=== PATIENT | female | born 1935 | race Caucasian/White ===

== ENCOUNTER 2016-11-06 10:03 | Emergency (ER) | payer OTHER ==
[2016-11-06 10:15] VITALS: RESP 18
--- NOTE | 2016-11-06 10:30 | CPEKG ---
Heart Rate: 57 RR Interval: 1053 P-R Interval: 144 QRSD Interval: 82 QT Interval: 448 QTC Interval: 437 P Homer: 69 QRS Homer: 25 T Wave Homer: 52 EKG Severity - BORDERLINE ECG - EKG Impression: SINUS RHYTHM EKG Impression: PROBABLE LEFT ATRIAL ABNORMALITY Electronically Signed By: Yary Jiang 06-Nov-2016 17:11:48
--- NOTE | 2016-11-06 10:54 | EDPHY ---
H & P Stated Complaint: Had trouble finding words ~ 1 min on Saturday;no episodes since HPI/ROS: CHIEF COMPLAINT: Episode of word-finding difficulty, resolved HISTORY OF PRESENT ILLNESS: This patient is an 81 year old female arriving with her son complaining of an episode of difficulty speaking lasting about one minute on Saturday, three days ago. She is visiting from [place] (arrived one week ago), and was in [place] with family having a conversation about history and schools. She found suddenly she was unable to say words. Her son states she attempted to make sounds, but was unable to make any words or sentences for around one minute. She has never had a similar episode before. She has felt well since then, and has not had any difficulties since. She endorses nausea yesterday evening but attributes this to taking two aspirin before bed. She denies headache, vision problems, difficulty swallowing, numbness, weakness, loss of hearing, recent illness, cold , cough, chest pain, vomiting, dysuria, or urinary complaints. She takes daily aspirin due to a myocardial infarction 15 years ago. She had a stent placed at that time. She has not been aware of an irregular heartbeat and has no history of known arrhythmia. REVIEW OF SYSTEMS: A ten point review of systems was performed and is negative with the exception of the items mentioned in the HPI. - Personal History Current Tetanus Diphtheria and Acellular Pertussis (TDAP): No - Medical/Surgical History PMH: 1. Hypertension (Metoprolol) 2. Hypothyroid 3. Hyperlipidemia 4. Myocardial Infarction 15 years ago. Catheterization, stent placement 5. Hysterectomy 6. Appendectomy 7. Bowel obstruction, bowel adhesions x3 - Social History Smoking Status: Former smoker Additional Social History: Lives alone in [place], [place]. Here visiting her children. Nonsmoker, no alcohol use. Retired. Worked as a investment banker, branch banker. PCP Dr. Vance in [place]. - Physical Exam Exam: General Appearance: Alert. Vital signs reviewed. Blood pressure 168/96. Eyes: Pupils equal and round, no conjunctival injection, no discharge. Anicteric. ENT, Mouth: Mucous membranes are moist, no oropharyngeal erythema or edema. Hard of hearing on left. Neck: No carotid bruits. No lymphadenopathy, supple. Respiratory: Lungs are clear to auscultation; no wheezes, rales, or rhonchi. Cardiovascular: Regular rate and rhythm; no murmur, rub, or gallop. Gastrointestinal: Abdomen is soft and nontender, no masses or organomegaly, bowel sounds normal. Skin: Warm and dry, no rashes on exposed skin, normal color. Back: Nontender to palpation over the thoracolumbar spine. No CVAT. Extremities: No lower extremity edema, no calf tenderness or swelling. Neurological: Alert and oriented. Moving all four extremities easily and equally. Cranial nerves II through XII are examined and are intact (visual acuity not tested). Strength is 5 over 5 bilaterally with testing of all major motor groups. Sensation is intact to light touch over all 4 extremities. Deep tendon reflexes are 1+ in the biceps and knees bilaterally. Gait is normal. [id number] is performed accurately. Psychiatric: Normal affect. Constitutional: Initial Vital Signs Temperature (C) 37 C 11/06/16 10:05 Heart Rate 67 11/06/16 10:05 Respiratory Rate 18 11/06/16 10:05 Blood Pressure 168/96 H 11/06/16 10:05 O2 Sat (%) 93 11/06/16 10:05 O2 Delivery Mode Room Air Allergies/Adverse Reactions: No Known Allergies Allergy (Unverified 11/06/16 10:15) Home Medications: Medication Instructions Recorded B P Med 11/06/16 Cholesterol Med 11/06/16 Thyroid Med 11/06/16 Medical Decision Making ED Course/Re-evaluation: Plan for MRI to evaluate for TIA vs stroke vs other acute processes. Dysphasia lasting one minute three days ago. She is out of the window for TPA. Neurologic exam is normal today, no further episodes--TPA not indicated regardless of time of onset of symptoms. MRI of brain negative for CVA, other acute findings. EKG reviewed, no arrhythmia. CBC, chemistries, PT/PTT normal except for slight elevation in glucose. 12:16 Reassessed patient. Her blood pressure is elevated at 219/102, which she states is unusual for her. She has 3 month followups with primary care and her hypertension has been well controlled with Metoprolol. She is compliant with her medication. Lopressor 5 mg IV given. BP at discharge 148/92. Episode of speech loss sounds like TIA. No evidence of stroke on imaging. She is offered admission for complete TIA work-up but declines. She understands that she is at risk of stroke and accepts this risk. She understands the importance of controlling her blood pressure. She does not with further work- up or treatment (such as adding Plavix to her medications) at this time and would like to follow up with her PCP. She is returning home this week. Danger signs reviewed. Differential Diagnosis: I considered a ddx that includes but is not limited to CVA (hemorrhagic or ischemic), TIA, seizure, electrolyte abnormality, infection. - Data Points Laboratory Results: Laboratory Results 11/06/16 10:35 11/06/16 10:35 Medications Given: Discontinued Medications Metoprolol Tartrate (Lopressor Injection) 10 mg IVP EDNOW ONE Stop: 11/06/16 13:45 Last Admin: 11/06/16 13:57 Dose: 5 mg Departure - Departure Disposition: Home, Routine, Self-Care Clinical Impression: Word finding difficulty, Hypertension Condition: Good Instructions: Transient Ischemic Attack (ED), Hypertension (ED) Additional Instructions: Continue your prescribed medications. Continue the aspirin daily. Follow up with your physician at home as soon as you return. Let your doctor know about the word-finding difficulty that you had this weekend. Light you know that your blood pressures were high when you were evaluated in the emergency department. I recommend that you buy a home blood pressure cuff and check your blood pressures once daily. You should write down the pressures and take that information to your doctor next week. If you develop headache, confusion, change in vision, difficulty with speech, new numbness, new weakness, any new or concerning symptoms you should be re- evaluated immediately. I am giving you information about transient ischemic attack. I do not know whether this is what happened to you. Referrals: LARON COMER [Other] - As per Instructions Report Scribed for: Yary Jiagn Report Scribed by: Esha Gauthier Date of Report: 11/06/16 Time of Report: 14:43 Physician Review and Approval Statement: 11/06/16 10:54 Portions of this note were transcribed by the ophthalmic medical technician. I, Dr. Yary Jiang, personally performed the history, physical exam, and medical decision- making; and confirmed the accuracy of the information in the transcribed note.
[2016-11-06 11:29] LABS: % IMMATURE GRANULYOCYTES 0.4 % (0.0-1.1); ABSOLUTE IMMATURE GRANULOCYTES 0.03 10^3/uL (0.00-0.10); ADD DIFF? NO; ADD MORPH? NO; ADD SCAN? NO; ATYPICAL LYMPHOCYTE FLAG 0 (0-99); FRAGMENT RBC FLAG 0 (0-99); HEMOGLOBIN 13.3 g/dL (12.6-16.3); LEFT SHIFT FLG 0 (0-99); LIPEMIA HEMOLYSIS FLAG 80 (0-99); MEAN CELL HEMOGLOBIN 31.1 pg (27.9-34.1); MEAN CELL HEMOGLOBIN CONCENTR. 33.3 g/dL (32.4-36.7); MEAN CELL VOLUME 93.7 fL (81.5-99.8); MEAN PLATELET VOLUME 9.3 fL (8.7-11.7); PLATELET CLUMPS FLAG 10 (0-99); PLATELET COUNT 190 10^3/uL (150-400); RED BLOOD CELL COUNT 4.27 10^6/uL (4.18-5.33); RED CELL DISTRIBUTION WIDTH 12.6 % (11.5-15.2)
[2016-11-06 11:36] LABS: ANION GAP 14 mEq/L (8-16); CALCIUM 9.8 mg/dL (8.5-10.4); CARBON DIOXIDE 24 mEq/l (22-31); CHLORIDE 100 mEq/L (97-110); CREATININE 0.8 mg/dL (0.6-1.0); GLOMERULAR FILTRATION RATE > 60; GLUCOSE 114 mg/dL (70-100); POTASSIUM 4.4 mEq/L (3.5-5.2); SODIUM 138 mEq/L (134-144)
[2016-11-06 11:39] LABS: INR 1.03 (0.83-1.16); PROTIME(PATIENT) 13.4 SEC (12.0-15.0)
[2016-11-06] MEDS ORDERED: GADOBUTROL 10 ML VIAL IVP ONE (12:52)
[2016-11-06 13:40] VITALS: TEMP 97.9
[2016-11-06] MEDS ORDERED: METOPROLOL TARTRATE 5 MG/5 ML INJ IVP ONE (13:44)
[2016-11-06] MEDS ORDERED: METOPROLOL TARTRATE 5 MG/5 ML INJ ONE (14:06)
[2016-11-06 14:17] VITALS: BP 148/92
[2016-11-06 14:57] VITALS: PULSE 60; O2SAT 97
== END 2016-11-06 14:57 | disposition home or self-care (01) ==
DX: R47.01 Aphasia (principal); I10 Essential (primary) hypertension; I25.2 Old myocardial infarction; R79.1 Abnormal coagulation profile; Z87.891 Personal history of nicotine dependence; Z95.5 Presence of coronary angioplasty implant and graft
CPT/HCPCS: 70553; 93005; 96374; 99285; A9585